=== PATIENT | female | born 1965 | race Caucasian/White ===

== ENCOUNTER 2023-10-24 01:19 | Emergency (ER) | payer OTHER, BC, SELFPAY ==
[2023-10-24 01:21] VITALS: BP 134/78; PULSE 78; RESP 16; TEMP 36.3; O2SAT 99; BMI 30.4
--- NOTE | 2023-10-24 01:35 | EDS_ITS ---
HPI History of Present Illness Chief Complaint: Lower Extremity Injury Informant: patient Narrative Narrative: 58-year-old female presenting to have her right knee evaluated. She states 2 weeks ago she tripped on uneven sidewalk and landed on her nose and right knee very hard. She had a lot of bruising, but it was more prominent lower after the large hematoma that she describes over the tibial tuberosity gradually resolved. The bruising is still there she states it is improving. She was having a little bit more pain in her right knee in the last day or 2 and it is a little more swollen than it was but swelling really has not gone away. She states that someone at work told her to come have it evaluated for infection because she feels like the right knee is warm. She does not have pain anywhere else in her right lower extremity just the knee. She has been ambulatory on it, she saw urgent care soon after the injury and states she had x-rays that were negative. This is the only other time she has presented for evaluation of it. She states she had a subjective low-grade fever earlier but no other systemic symptoms. She takes no anticoagulants or aspirin daily. [facility] Medical History Breast cancer Breast lump Home Medications ?Medication ?Instructions ?Recorded ?Last Taken ?Type calcium carbonate (Calcium 500) 500 mg PO DAILY 08/14/19 Unknown History famotidine 40 mg tablet ea PO 08/14/19 Unknown History magnesium 250 mg tablet 250 mg PO DAILY 08/14/19 Unknown History montelukast 10 mg tablet tab PO 08/14/19 Unknown History omega 1-vpg-xna-fish oil 1,000 mg 1 cap PO DAILY 08/14/19 Unknown History (120 mg-180 mg) capsule (Fish Oil) zinc 50 mg tablet 50 mg PO DAILY 08/14/19 Unknown History fluticasone furoate 200 ea inhalation 03/09/20 Unknown History mcg-vilanterol 25 mcg/dose inhalation powder letrozole 2.5 mg tablet 2.5 mg PO DAILY 03/22/23 Unknown History naproxen 500 mg tablet 500 mg PO BID #10 tabs 10/24/23 Unknown Rx Allergy/AdvReac Type Severity Reaction Status Date / Time hydrocodone (From Vicodin) Allergy Shortness Verified 10/24/23 01:20 of breath Sulfa (Sulfonamide Allergy Hives Verified 10/24/23 01:20 Antibiotics) Family History Other Diabetes Heart disease Hypertension Surgical History History of lumpectomy of right breast Social History Smoking Status: Never smoker alcohol intake: never ROS ROS ED Constitutional Constitutional ED: Denies chills or fever(s) Musculoskeletal Musculoskeletal: Reports extremity pain; Denies neck pain Integumentary Denies Abrasions, rash or wounds Neurologic Neurologic: Denies paresthesias or weakness EXAM Physical Exam Const Vital Signs: 10/24/23 01:21 Temperature 97.4 F L Temperature Source Temporal Pulse Rate 78 Respiratory Rate 16 Blood Pressure 134/78 H Blood Pressure Mean 96 Pulse Ox 99 Oxygen Delivery Method Room Air Positive well nourished and well developed General Appearance ED: well developed and NAD Neck full ROM and supple Back/Spine normal ROM and normal to inspection Extremity Extremity Narrative: Patient has a healing abrasion anterior right knee, there is no sign of celluli tis or erythema, the knee is a little warm compared with the surrounding areas. There is extensive purpura/ecchymosis distal to this in the calf, ankle, and layering along the plantar aspect of the foot and there are no areas of tenderness throughout all of this area even though there is edema in the ankle associated with it. She can bend the knee very well to about 80 degrees, limited there due to the swelling and pain. Full extension intact. No significant bony tenderness throughout the knee. Neuro oriented x3, no focal motor deficits and no sensory deficits noted Sensorium / Orientation: alert Psych mental status grossly normal and thought process normal Skin no wounds Rashes: no rashes MDM MDM MDM Narrative Medical decision making narrative: I reassured the patient, she is not examining like a septic arthritis at all. I suspect the warmth and swelling is due to a traumatic effusion, she has not been wrapping it or limiting her motion of it at all, and that is probably contributing to its persistence. It appears that the ecchymosis appropriate has been draining in the subcutaneous tissues distally. She states it is actually better than it had been and it is pretty extensive even now. She does not have any symptoms of anemia, her vital signs are normal, so really do not think she needs an emergent metabolic/infectious workup, she does not have a fever here temperature is 97.4. However, I am going to obtain 4 view x-ray series of the right knee to assess for occult fracture and/or effusion, and if she has a moderate effusion I advised her that since she is not anticoagulated we could perform an arthrocentesis for therapeutic reasons, it may help her discomfort. 4 view x-ray series of the right knee on my interpretation is negative for acute bony abnormality. Specifically, as radiology interprets as well, there is no effusion. Therefore I do not think an arthrocentesis going to be helpful right now. I think this is all anterior. I reexamined her knee. There is a healing abrasion with a scab and there is a very slight amount of erythema just proximal to this, she is really not tender there but the majority of the tenderness is more proximal to this where there is no erythema, over the patella. It is a little boggy. I think this is mostly consistent with a traumatic bursitis and it is probably warm because it is very inflamed. There is no fluctuance to suggest an abscess or infection here. There is no lymphangitis. I gave her an Elton wrap, dose of ibuprofen, prescription for Naprosyn at her request, and advised her to follow-up with orthopedics since it has been 2 weeks and avoid kneeling on the area. She is icing it and advised to continue doing that as needed, and to return to the ER if she has signs or symptoms of infection, which would include spreading of the erythema especially proximally. Radiography Diagnostic Testing: Clinical Impression(s) from Imaging Studies Knee X-Ray 10/24/23 01:35 IMPRESSION: No acute abnormality of the right knee Electronically Signed: Richy Alvarado MD at 2:26 EDT , Discharge Plan Triage Chief Complaint: Lower Extremity Injury ED Provider: Alex Cannon Dx/Rx/DC Orders Clinical Impression: Traumatic hematoma of right lower leg, Traumatic bursitis Instructions: Understanding Prepatellar Bursitis, ED Hematoma Prescriptions: New naproxen 500 mg tablet 500 mg PO BID Qty: 10 0RF No Action montelukast 10 mg tablet PO famotidine 40 mg tablet PO Patient Comments: take 1 tablet by mouth once daily omega 9-yoe-jid-fish oil [Fish Oil] 1,000 mg (120 mg-180 mg) capsule 1 cap PO DAILY calcium carbonate [Calcium 500] 500 mg calcium (1,250 mg) tablet 500 mg PO DAILY magnesium 250 mg tablet 250 mg PO DAILY zinc 50 mg tablet 50 mg PO DAILY fluticasone furoate-vilanterol 200-25 mcg/dose blister with device INHALATION Patient Comments: inhale 1 puff by mouth and INTO THE LUNGS once daily Rinse mouth after use letrozole 2.5 mg tablet 2.5 mg PO DAILY Primary Care Provider: Gina Lambert Referrals: Naman Deshpande MD [Non-Staff] - Jaylen Muse DO [Med Staff - Active Staff] - As soon as possible (call for appt) Print Language: Maori Disposition Disposition: Home, Self Care
--- NOTE | 2023-10-24 01:35 | RAD_ITS ---
EXAM: XR Knee Complete 4 Views or More INDICATION: Female, 58 years old. Post traumatic right knee pain and swelling TECHNIQUE: AP, PA, lateral, and tangential patellar views COMPARISON: None FINDINGS: BONES: No acute fracture. No lytic or blastic lesion. JOINTS: Joints are in normal alignment. There is minimal degenerative change of the patellofemoral and medial compartments. No periarticular inflammatory change. No knee joint effusion.. SOFT TISSUES: No soft tissue abnormality. RAD/Knee 4 or More Views IMPRESSION: No acute abnormality of the right knee Electronically Signed: Richy Alvarado MD at 2:26 EDT ,
[2023-10-24] MEDS: Ibuprofen 600 MG Tablet PO (02:42)
[2023-10-24 02:48] VITALS: BP 126/78; PULSE 69; RESP 18; TEMP 36.8; O2SAT 97
== END 2023-10-24 02:49 | disposition home or self-care (01) ==
PROVIDERS: Emergency Provider Emergency Medicine; PCP Internal Medicine; Visit Provider Emergency Medicine
DX: S80.11XA Contusion of right lower leg, initial encounter (principal); W10.1XXA Fall (on)(from) sidewalk curb, initial encounter; M71.561 Other bursitis, not elsewhere classified, right knee
CPT/HCPCS: 73564; 99282

== ENCOUNTER 2023-10-25 15:47 | Emergency (ER) | payer OTHER, BC, SELFPAY ==
[2023-10-25 15:48] VITALS: BP 137/83; PULSE 62; RESP 16; TEMP 36.3; O2SAT 100; BMI 30.9
--- NOTE | 2023-10-25 16:00 | VDLE_ITS ---
Reason For Study: RLE Swelling RIGHT LEFT GSV is normal. FV is compressible, spontaneous, phasic, CFV is compressible, spontaneous, phasic, competent and demonstrates normal competent and demonstrates normal augmentation. augmentation. FV is compressible, spontaneous, phasic, competent and demonstrates normal augmentation. POP V is compressible, spontaneous, phasic, competent and demonstrates normal augmentation. T/P Trunk is compressible. PTV is compressible. RT PerV is compressible. Procedure This is a venous duplex using B-mode, color flow and spectral Doppler. Exam performed portable in ED. The exam was diagnostic. A preliminary report was called and/or faxed to Dr Cannon / Dr. Juares office ([facility]). VL/Venous Duplex US, Unilateral Interpretation Summary Deep veins of the right lower extremity are patent and compressible segmentally . There is no evidence of right lower extremity deep vein thrombosis. Valvular competence keli ears intact within the proximal deep venous system on the right . The right great saphenous vein a ppears patent and compressible segmentally. The left femoral vein is patent and compressible. Ordering Physician: Alex Cannon Referring Physician: Gina Lambert Performed By: Christopher Lindquist, JUAN R
--- NOTE | 2023-10-25 16:03 | EDS_ITS ---
HPI History of Present Illness Chief Complaint: Lower Extremity Injury Informant: patient Narrative Narrative: Patient seen here couple days ago for evaluation a couple of weeks after falling on her right knee, she was noted to have extensive ecchymosis distal to the injury likely due to resolving hematoma draining through the subcutaneous tissues with gravity; she was seen by myself. She was more concerned about the fact that her knee was sore and a little red on top. At this time she agrees that that is improved, and inconsistent with infection. Today she followed up with a doctor at [facility] who wanted her to have a venous Doppler to rule out DVT. They wrote for her to have it as an outpatient, however when she arrived with the prescription, they were for some reason unable to get her the test as written and sent her to the ER to have the test done. The patient states she has no complaints, she states it seems to be improving with regards to pain and redness, and she states she was sent here for a test and is not sure about the details. She has had no fractures in his leg. She had several x-ray series including the 1 that we did that were negative. She has no chest pain or dyspnea or syncopal episodes or other systemic symptoms. No history of DVTs in the past. She has not been hospitalized, splinted or casted, or had any major immobilization due to this injury to her knee. [facility] Medical History Breast cancer Breast lump Home Medications ?Medication ?Instructions ?Recorded ?Last Taken ?Type calcium carbonate (Calcium 500) 500 mg PO DAILY 08/14/19 Unknown History famotidine 40 mg tablet ea PO 08/14/19 Unknown History magnesium 250 mg tablet 250 mg PO DAILY 08/14/19 Unknown History montelukast 10 mg tablet tab PO 08/14/19 Unknown History omega 9-ydj-ytj-fish oil 1,000 mg 1 cap PO DAILY 08/14/19 Unknown History (120 mg-180 mg) capsule (Fish Oil) zinc 50 mg tablet 50 mg PO DAILY 08/14/19 Unknown History fluticasone furoate 200 ea inhalation 03/09/20 Unknown History mcg-vilanterol 25 mcg/dose inhalation powder letrozole 2.5 mg tablet 2.5 mg PO DAILY 03/22/23 Unknown History naproxen 500 mg tablet 500 mg PO BID #10 tabs 10/24/23 Unknown Rx Allergy/AdvReac Type Severity Reaction Status Date / Time hydrocodone (From Vicodin) Allergy Shortness Verified 10/25/23 15:48 of breath Sulfa (Sulfonamide Allergy Hives Verified 10/25/23 15:48 Antibiotics) Family History Other Diabetes Heart disease Hypertension Surgical History History of lumpectomy of right breast Social History Smoking Status: Never smoker alcohol intake: never ROS ROS ED Constitutional Constitutional ED: Denies chills or fever(s) Musculoskeletal Musculoskeletal: Reports extremity pain; Denies neck pain Integumentary Reports other Details: bruising RLE, see HPI ; Denies Abrasions, rash or wounds Neurologic Neurologic: Denies paresthesias or weakness EXAM Physical Exam Const Vital Signs: 10/25/23 15:48 Temperature 97.3 F L Temperature Source Temporal Pulse Rate 62 Respiratory Rate 16 Blood Pressure 137/83 H Blood Pressure Mean 101 Pulse Ox 100 Oxygen Delivery Method Room Air Positive well nourished and well developed General Appearance ED: well developed and NAD Neck full ROM and supple Back/Spine normal ROM and normal to inspection Extremity Extremity Narrative: Extensive ecchymosis that appears to be resolving, the right lower extremity. It is distal to where she had the initial hematoma which was around the tibial tuberosity; it is very similar to my exam couple days ago. She does have edema in the ankle that appears to be associated with all of this ecchymosis, and there is no tenderness distal to the knee. At the knee, the scab that she had is now gone and there is healthy skin beneath it, the erythema she had the other day is improved and nontender. She still has some tenderness at the patella. No calf tenderness no palpable cords. Neuro oriented x3, no focal motor deficits and no sensory deficits noted Sensorium / Orientation: alert Psych mental status grossly normal and thought process normal Skin no wounds Rashes: no rashes MDM MDM MDM Narrative Medical decision making narrative: In my clinical judgment, as it was the other day, the edema in her leg is due to the ecchymosis that has been traveling distally with gravity between fascial planes/skin. She has no risk factors for DVT here nor did she have any fracture or splinting or immobilization of the extremity which are the main risk factors for DVT in trauma patients. However the physician who sent her wanted duplex Doppler, so I am happy to obtain it for the patient. Duplex ultrasound of the right lower extremity obtained, according to the general maintenance technician the wet read is negative for DVT, and states also it is consistent with prepatellar bursitis. Wet read will be called to [facility] at their request by the general maintenance technician, patient reassured and discharged with same instructions were given the other day. Discharge Plan Triage Chief Complaint: Lower Extremity Injury ED Provider: Alex Cannon Dx/Rx/DC Orders Clinical Impression: Traumatic bursitis, Traumatic hematoma of right lower leg Instructions: Understanding Prepatellar Bursitis Prescriptions: No Action montelukast 10 mg tablet PO famotidine 40 mg tablet PO Patient Comments: take 1 tablet by mouth once daily omega 2-pfa-ong-fish oil [Fish Oil] 1,000 mg (120 mg-180 mg) capsule 1 cap PO DAILY calcium carbonate [Calcium 500] 500 mg calcium (1,250 mg) tablet 500 mg PO DAILY magnesium 250 mg tablet 250 mg PO DAILY zinc 50 mg tablet 50 mg PO DAILY fluticasone furoate-vilanterol 200-25 mcg/dose blister with device INHALATION Patient Comments: inhale 1 puff by mouth and INTO THE LUNGS once daily Rinse mouth after use letrozole 2.5 mg tablet 2.5 mg PO DAILY naproxen 500 mg tablet 500 mg PO BID Qty: 10 0RF Primary Care Provider: Gina Lambert Referrals: [facility]] - As Needed Print Language: Arabic Disposition Disposition: Home, Self Care
== END 2023-10-25 17:01 | disposition home or self-care (01) ==
PROVIDERS: Emergency Provider Emergency Medicine; PCP Internal Medicine; Visit Provider Emergency Medicine
DX: S80.11XA Contusion of right lower leg, initial encounter (principal); M71.561 Other bursitis, not elsewhere classified, right knee; W19.XXXA Unspecified fall, initial encounter; R60.0 Localized edema
CPT/HCPCS: 93971; 99282